=== PATIENT | female | born 1985 | race Hispanic/Latino ===

== ENCOUNTER → 2016-07-17 | Outpatient (CLI) | payer SELFPAY ==
[~2016-07-17] MED LIST: LAB
== END | disposition home or self-care (01) ==
LOC: RAD 14:26
DX: Z98.891 History of uterine scar from previous surgery (principal); Z3A.34 34 weeks gestation of pregnancy
CPT/HCPCS: 76815

== ENCOUNTER 2016-08-15 10:20 | Inpatient (IN) | payer SELFPAY ==
[~2016-08-15] VITALS: Ht 149.9 cm; Wt 81.4 kg
[2016-08-15] VITALS (7 sets, daily range): BP systolic 111–150; BP diastolic 65–96
[2016-08-15 11:57] LABS: EOSINOPHIL (%) 0.3 % (0-5); HEMATOCRIT 35.2 % (36.0-46.0); IMMATURE GRANULOCYTE (%) 0.5 % (0.0-0.7); IMMATURE GRANULOCYTE COUNT 0.6 K/uL; LYMPHOCYTE COUNT 1.7 K/uL (1.0-2.8); MCH 31.9 PG (29.0-34.0); MCHC 35.2 G/DL (30.0-36.0); MCV 90.5 FL (83-99); MEAN PLAT.VOLUME 11.9 uM^3 (9.5-12.4); MONOCYTE (%) 5.5 % (3-12); MONOCYTE COUNT 0.6 K/uL (0-0.8); NEUTROPHIL (%) 79.1 % (45-76); NEUTROPHIL COUNT 9.3 K/uL (1.8-6.4); PLATELET COUNT 178 K/uL (156-360); RBC DIS.WIDTH-CV 13.6 % (11.8-14.6); RBC DIS.WIDTH-SD 43.7 % (39-53); RED BLOOD COUNT 3.89 M/uL (3.80-5.20); WHITE BLOOD COUNT 11.7 K/uL (4.1-10.2)
[2016-08-16] VITALS (7 sets, daily range): BP systolic 115–140; BP diastolic 62–85
[2016-08-16 07:49] LABS: EOSINOPHIL (%) 0.4 % (0-5); HEMATOCRIT 26.8 % (36.0-46.0); IMMATURE GRANULOCYTE (%) 0.4 % (0.0-0.7); IMMATURE GRANULOCYTE COUNT 0.1 K/uL; LYMPHOCYTE COUNT 1.5 K/uL (1.0-2.8); MCH 30.8 PG (29.0-34.0); MCHC 33.2 G/DL (30.0-36.0); MCV 92.7 FL (83-99); MEAN PLAT.VOLUME 11.4 uM^3 (9.5-12.4); MONOCYTE COUNT 0.6 K/uL (0-0.8); NEUTROPHIL (%) 80.8 % (45-76); PLATELET COUNT 147 K/uL (156-360); RBC DIS.WIDTH-CV 14.2 % (11.8-14.6); RBC DIS.WIDTH-SD 47.9 % (39-53); WHITE BLOOD COUNT 11.2 K/uL (4.1-10.2)
[2016-08-16 07:50] LABS: RED BLOOD COUNT 2.89 M/uL (3.80-5.20)
[2016-08-17 03:18] VITALS: BP 137/76
[2016-08-17 07:04] VITALS: BP 138/72
[2016-08-17 12:04] VITALS: BP 153/92
[2016-08-17 14:12] VITALS: BP 128/75
[2016-08-17 23:30] VITALS: BP 132/89
[2016-08-18 07:11] VITALS: BP 141/79
[2016-08-18] MEDS ORDERED: FERROUS SULFAT325 MG PO (10:38)
[2016-08-18] MEDS ORDERED: IBUPROFEN800 MG PO (10:38)
[2016-08-18] MEDS ORDERED: ENDOCET 5-3251 EACH PO (10:38)
== END 2016-08-18 12:03 | disposition home or self-care (01) | DRG 765 ==
LOC: LDRP-OP 10:20 → 2WEST 10:21 → LDRP-OP 09-20 11:40
PROVIDERS: Obstetrics & Gynecology Obstetrics
PROC: 10D00Z1 Extraction of Products of Conception, Low, Open Approach (ICD-10-PCS; principal; 2016-08-15)
DX: O34.211 Maternal care for low transverse scar from previous cesarean delivery (principal); D62 Acute posthemorrhagic anemia; O90.81 Anemia of the puerperium; N85.8 Other specified noninflammatory disorders of uterus; O99.824 Streptococcus B carrier state complicating childbirth; O99.214 Obesity complicating childbirth; E66.9 Obesity, unspecified; Z37.0 Single live birth; Z3A.38 38 weeks gestation of pregnancy
CPT/HCPCS: 85025; 85025 91; 86850; 86900; 86901; J0690; J1170; J1885; J2274; J2405; J7050; J7120